=== PATIENT | male | born 1995 | race Caucasian/White ===

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

== ENCOUNTER 2019-02-27 18:46 | Emergency (ER) | payer BC, OTHER, MEDICAID ==
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
[2019-02-27 20:04] LABS: ABS Lymphocytes 1.7 10^3/ul (1.0-4.8); ABS Monocytes 0.7 10^3/ul (0-0.8); ABS Neutrophils 9.7 10^3/ul (1.5-7.7); Eosinophil % 0.4 %; Hematocrit 48 % (42-52); Hemoglobin 16.3 g/dL (14.0-18.0); Lymphocyte % 14.1 %; Mean Corpuscular HGB Conc 34 g/dL (31-36); Mean Corpuscular Hemoglobin 26 pg (27-31); Mean Corpuscular Volume 77 fL (80-94); Mean Platelet Volume 8.6 fL (7.4-10.4); Nucleated Red Blood Cells % 0.1; Platelet Count 289 10^3/uL (150-450); Red Cell Distribution Width 15 % (10-15); White Blood Count 12.2 10^3/uL (3.5-10.8)
[2019-02-27] MEDS ORDERED: Ketorolac INJ* 30 MG/ML 1 ML VIAL IV PUSH ONE (20:08)
[2019-02-27 20:20] LABS: Activated Partial Thrombo Time 34.6 seconds (26.0-38.0); INR 0.94 (0.82-1.09)
[2019-02-27 20:23] LABS: Albumin 4.9 g/dL (3.2-5.2); Albumin/Globulin Ratio 1.8 (1-3); Calcium 9.7 mg/dL (8.6-10.3); EGFR African American 114.1 (>60); EGFR Non-African American 94.3 (>60); Globulin 2.8 g/dL (2-4); Total Bilirubin 0.4 mg/dL (0.2-1.0); Total Protein 7.7 g/dL (6.4-8.9)
[2019-02-27 20:31] LABS: C Reactive Protein 1.89 mg/L (<8.01); Magnesium 2.1 mg/dL (1.9-2.7)
[2019-02-27 20:56] LABS: Potassium 4.3 mmol/L (3.5-5.0)
[2019-02-27 21:16] LABS: Erythrocyte Sed Rate 2 mm/Hr (0-14)
[2019-02-27] MEDS ORDERED: Morphine 4 MG/ML VIAL (1 ml) 4 MG/ML VIAL IV ONE (21:27)
[2019-02-27] MEDS ORDERED: Metoclopramide IV* 5 MG/ML 2 ML VIAL IV SLOW PU ONE (21:27)
[2019-02-27 23:40] VITALS: BP 149/90
== END 2019-02-27 23:29 | disposition home or self-care (01) ==
LOC: ED 18:46
DX: R07.89 Other chest pain (principal); R68.84 Jaw pain; M25.512 Pain in left shoulder; Z82.49 Family history of ischemic heart disease and other diseases of the circulatory system; F17.200 Nicotine dependence, unspecified, uncomplicated
CPT/HCPCS: 36415; 71045; 80053; 82550; 83735; 84443; 84484; 85025; 85379; 85610; 85652; 85730; 86140; 93005; 96374; 96375; 99284; J1885; J2270; J2765

== ENCOUNTER 2019-09-06 18:31 | Emergency (ER) | payer BC, MEDICAID, OTHER ==
[2019-09-06 19:54] VITALS: BP 169/93
[2019-09-06] MEDS ORDERED: Ketorolac INJ* 30 MG/ML 1 ML VIAL IM ONE (20:16)
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
--- NOTE | 2019-09-07 07:46 | UC ---
- Progress Note Progress Note: no change in initial management - patient went to the ER - EKG/XRAY/CT XRAY: chest - no acute pathology Course/Dx - Diagnoses Provider Diagnoses: Right upper quadrant abdominal pain Discharge ED - Sign-Out/Discharge Documenting (check all that apply): Post-Discharge Follow Up All imaging exams completed and their final reports reviewed: Yes - Discharge Plan Condition: Stable Disposition: HOME-RECOMMEND TO ED Patient Education Materials: Acute Abdominal Pain (ED) Referrals: No Primary Care Phys,NOPCP [Primary Care Provider] - Additional Instructions: I suggest you go to the ER for treatment and work up of you abd pain Don't eat or drink - Billing Disposition and Condition Condition: STABLE Disposition: Home-Recommend to ED
== END 2019-09-06 21:11 | disposition home health service (06) ==
LOC: UCEAST 18:31
DX: R10.11 Right upper quadrant pain (principal); R07.9 Chest pain, unspecified; F17.210 Nicotine dependence, cigarettes, uncomplicated
CPT/HCPCS: 71046; 81003; 96372; 99212; G0463; J1885

== ENCOUNTER 2019-09-06 21:42 | Observation (INO) | payer MEDICAID ==
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
[2019-09-06 22:10] LABS: ABS Basophils 0.1 10^3/ul (0-0.2); ABS Eosinophils 0.3 10^3/ul (0-0.6); ABS Lymphocytes 3.9 10^3/ul (1.0-4.8); ABS Monocytes 0.8 10^3/ul (0-0.8); ABS Neutrophils 5.1 10^3/ul (1.5-7.7); Eosinophil % 3.4 %; Hematocrit 46 % (42-52); Hemoglobin 15.7 g/dL (14.0-18.0); Lymphocyte % 37.8 %; Mean Corpuscular HGB Conc 34 g/dL (31-36); Mean Corpuscular Hemoglobin 27 pg (27-31); Mean Corpuscular Volume 77 fL (80-94); Mean Platelet Volume 8.4 fL (7.4-10.4); Nucleated Red Blood Cells % 0.2; Platelet Count 299 10^3/uL (150-450); Red Blood Count 5.92 10^6 /uL (4.18-5.48); Red Cell Distribution Width 14 % (10-15); White Blood Count 10.3 10^3/uL (3.5-10.8)
[2019-09-06 22:27] LABS: ALT 39 U/L (7-52); AST 35 U/L (13-39); Albumin 4.9 g/dL (3.2-5.2); Albumin/Globulin Ratio 1.8 (1-3); Alkaline Phosphatase 76 U/L (34-104); Anion Gap 7 mmol/L (2-11); BUN/Creatinine Ratio 13.1 (8-20); Blood Urea Nitrogen 14 mg/dL (6-24); C Reactive Protein 1.51 mg/L (<8.01); CO2 Carbon Dioxide 29 mmol/L (22-32); Calcium 9.3 mg/dL (8.6-10.3); Chloride 103 mmol/L (101-111); EGFR African American 104.6 (>60); EGFR Non-African American 86.4 (>60); Globulin 2.8 g/dL (2-4); Glucose 76 mg/dL (70-100); Potassium 3.5 mmol/L (3.5-5.0); Sodium 139 mmol/L (135-145); Total Protein 7.7 g/dL (6.4-8.9)
[2019-09-07] MEDS ORDERED: NS 0.9% 1000 ML** 1,000 ML IV ONE (00:18)
[2019-09-07] MEDS ORDERED: Ketorolac INJ* 15 MG/ML 1 ML VIAL IV PUSH PRN (00:33)
[2019-09-07] MEDS ORDERED: ZOSYN 3.375 GM Q6H - Intermittant 30 min Infusion IVPB SCH ×2 (00:33)
[2019-09-07] MEDS ORDERED: NS 0.9% 1000 ML** 1,000 ML IV SCH (00:33)
[2019-09-07] MEDS ORDERED: Ondansetron INJ* 2 MG/ML VIAL IV PRN (00:33)
[2019-09-07] MEDS: ZOSYN 3.375 GM Q6H - Intermittant 30 min Infusion IVPB SCH ×4 (01:53→08:05)
[2019-09-07 05:58] LABS: ABS Basophils 0.1 10^3/ul (0-0.2); ABS Eosinophils 0.3 10^3/ul (0-0.6); ABS Lymphocytes 3.3 10^3/ul (1.0-4.8); ABS Monocytes 0.9 10^3/ul (0-0.8); ABS Neutrophils 3.9 10^3/ul (1.5-7.7); Hematocrit 42 % (42-52); Hemoglobin 14.6 g/dL (14.0-18.0); Lymphocyte % 39.1 %; Mean Corpuscular HGB Conc 35 g/dL (31-36); Mean Corpuscular Hemoglobin 27 pg (27-31); Mean Corpuscular Volume 76 fL (80-94); Mean Platelet Volume 8.5 fL (7.4-10.4); Platelet Count 249 10^3/uL (150-450); Red Cell Distribution Width 14 % (10-15); White Blood Count 8.4 10^3/uL (3.5-10.8)
[2019-09-07 06:18] LABS: Albumin/Globulin Ratio 1.7 (1-3); BUN/Creatinine Ratio 14.1 (8-20); Calcium 8.5 mg/dL (8.6-10.3); EGFR African American 114.4 (>60); EGFR Non-African American 94.5 (>60); Globulin 2.3 g/dL (2-4); Potassium 3.9 mmol/L (3.5-5.0); Total Bilirubin 0.7 mg/dL (0.2-1.0); Total Protein 6.3 g/dL (6.4-8.9)
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
[2019-09-07] MEDS ORDERED: Bupivacaine 0.5%* 50 ML MDV VIAL ONE (11:07)
[2019-09-07] MEDS ORDERED: Acetaminophen IV 1GM/100ML * 100 ML ONE ×2 (11:43→14:46)
[2019-09-07] MEDS ORDERED: Rocuronium* 10 MG/ML VIAL ONE (11:43)
[2019-09-07] MEDS ORDERED: Lidocaine 2% PF * 5 ML VIAL ONE (11:43)
[2019-09-07] MEDS ORDERED: Midazolam* 1 MG/ML 2 ML VIAL (2 MG) ONE (11:43)
[2019-09-07] MEDS ORDERED: fentaNYL* 50 MCG/ML 5 ML VIAL (250 MCG VIAL) ONE (11:43)
[2019-09-07] MEDS ORDERED: Succinylcholine* 20 MG/ML 10 ML VIAL ONE (11:43)
[2019-09-07] MEDS ORDERED: Propofol* 10 MG/ML 20 ML BTL ONE (11:43)
[2019-09-07] MEDS ORDERED: ceFAZolin 2 GM PREMIX in ORs 2 GM/50 ML BAG ONE (14:25)
[2019-09-07] MEDS ORDERED: ceFAZolin VIAL(*) VIAL ONE (14:27)
[2019-09-07] MEDS ORDERED: Neostigmine Methylsulfate* 1 MG/ML 10 ML VIAL (1 mg/ml) ONE (14:46)
[2019-09-07] MEDS ORDERED: Glycopyrrolate IV* 0.2 MG/ML 1 ML VIAL ONE (14:46)
[2019-09-07] MEDS ORDERED: Ondansetron INJ* 2 MG/ML VIAL ONE (14:46)
[2019-09-07] MEDS ORDERED: Ketorolac INJ* 30 MG/ML 1 ML VIAL ONE (14:46)
--- NOTE | 2019-09-07 15:03 | BRIEFOPN ---
Brief Operative/Procedure Note - Operation Details Pre-Op Diagnosis: Cholecystitis Post-Op Diagnosis: Cholecystitis Procedures: Laparoscopic Cholecystectomy Surgeon(s)/Proceduralists: Dr. Ortiz. Assist: JIGNESH Esparza Anesthesia: GETA. IVF: 2L Estimated Blood Loss: <25cc Findings: As above Specimen(s)/Culture(s) Description: Gallbladder Complications: None
[2019-09-07] MEDS ORDERED: fentaNYL* 50 MCG/ML 2 ML VIAL (100 MCG VIAL) IV PRN ×2 (15:18→17:27)
[2019-09-07] MEDS ORDERED: DiMENhydriNATE IV* 50 MG/ML VIAL IV PUSH PRN (15:18)
[2019-09-07] MEDS ORDERED: Naloxone* 0.4 MG/ML 1 ML VIAL IV PRN (15:18)
[2019-09-07] MEDS ORDERED: fentaNYL* 50 MCG/ML 2 ML VIAL (100 MCG VIAL) ONE (15:21)
--- NOTE | 2019-09-07 15:54 | DS ---
Admitted: 09/07/2019 Discharged: 09/07/2019 Admission Diagnosis: Cholecystitis Discharge Diagnosis: Cholecystitis, S/P Cholecystectomy Condition at discharge: Stable PEX: General: In NAD or discomfort Integumentary: No rashes or jaundice HEENT: Oropharynx clear Heart: RRR Lungs: CTAB, no WRR ABD: +BS. Soft, nondistended. Tender around incisions, which are C/D/I with no erythema or warmth. Extremities: Calves nontender. Distal pulses intact bilaterally. No edema. Procedure performed: Laparoscopic cholecystectomy Hospital Course: Presented to ED on 09/06/2019 with RUQ pain. USN demonstrated cholecystitis with cholelithiasis. Admitted to surgical service on 09/07/2019. Underwent laparoscopic cholecystectomy on 09/07/2019. Procedure was tolerated well and he was then discharged home in stable condition on 09/07/2019. Discharge instructions were given to the pt regarding diet, meds, activity, and post op follow up. All questions were answered.
[2019-09-07 16:23] VITALS: BP 154/97
--- NOTE | 2019-09-08 01:30 | OP ---
DATE OF OPERATION: 09/07/19 - ROOM #332 DATE OF : [birth year] SURGEON: Diego Ortiz MD [employer] BUSINESS ANALYST: JIGNESH Mcmullen PRE-OP DIAGNOSIS: Cholecystitis. POST-OP DIAGNOSIS: Cholecystitis. OPERATIVE PROCEDURE: Laparoscopic cholecystectomy. INDICATION FOR PROCEDURE: Risks including to not limited to bleeding infection , injury to intraabdominal contents including the bowel, bile duct, and the liver cystic duct leak. I explained to the patient, he seemed to understand and agreed to the procedure and all questions were answered. DESCRIPTION OF PROCEDURE: The patient was taken to the operating room and placed in the supine. Preoperative antibiotics were given. After the successful induction of general endotracheal anesthesia, the abdomen was prepped and draped in sterile fashion. A 5 mm trocar was placed to the right of the falciform ligament under direct visualization with camera using a bladeless Optiview trocar. Pneumoperitoneum was achieved at 15 mmHg. A camera was placed into the abdomen and the abdomen was scanned. There was no obvious injury from trocar placement. An infraumbilical anterior right lower quadrant trocars were placed under direct visualization of the camera. The patient was placed in the reverse Trendelenburg position, tilted slightly towards left and the fundus of the gallbladder was grasped and retracted up and over the liver. The cystic duct was identified, isolated, clipped, and divided. The cystic artery along with the branch was identified, isolated, clipped, and divided. The gallbladder was removed from the hepatic bed using the Bovie cautery hook, it was placed into an Endobag and removed through the umbilical port site. The right upper quadrant was inspected. Hemostasis was achieved. EBL minimal. Clips were in place. The abdomen was scanned. There was no obvious injury. Pneumoperitoneum was released from the abdomen and the trocars were removed. The skin was closed with Monocryl and glue. He tolerated procedure well. He was extubated and taken to the recovery room in stable condition. [id number] #: [id number] MTDD
== END 2019-09-07 17:00 | disposition home or self-care (01) ==
LOC: ED 21:42 → INTOOBSV 09-07 01:16 → SSU 09-07 01:16
PROVIDERS: ADMIT Surgery; ATTEND Surgery
DX: K80.10 Calculus of gallbladder with chronic cholecystitis without obstruction (principal); I10 Essential (primary) hypertension; F17.210 Nicotine dependence, cigarettes, uncomplicated
CPT/HCPCS: 36415; 76705; 80053; 83605; 83690; 85025; 86140; 93005; 96374; 99284; G0378; J0330; J0690; J1885; J2250; J2405; J2543; J2704; J2710; J3010; J3490